=== PATIENT | female | born 1985 | race Caucasian/White ===

== ENCOUNTER 2021-12-20 17:18 | Emergency (ER) | payer OTHER ==
[~2021-12-20] VITALS: Ht 157.5 cm; Wt 61.0 kg
[2021-12-20] MEDS ORDERED: TOPUD PO (21:26)
[2021-12-20] MEDS ORDERED: IBUP-2028 MT (21:26)
[2021-12-20] MEDS ORDERED: LIDO1ADH23 TP (21:27)
[2021-12-20 21:30] VITALS: BP 135/92
[2021-12-20] MEDS ORDERED: IBUPROFEN 400MG TABLET PO ONE (21:30)
== END 2021-12-20 21:42 | disposition home or self-care (01) ==
LOC: ER 17:18
DX: S00.03XA Contusion of scalp, initial encounter (principal); M25.511 Pain in right shoulder; Z88.0 Allergy status to penicillin; Y04.0XXA Assault by unarmed brawl or fight, initial encounter; Y93.89 Activity, other specified; Y92.89 Other specified places as the place of occurrence of the external cause
CPT/HCPCS: 71045; 73030; 81025; 99284